=== PATIENT | male | born 2005 | race Caucasian/White ===

== ENCOUNTER 2024-04-30 02:27 | Emergency (ER) | payer OTHER, SELFPAY ==
[2024-04-30 02:29] VITALS: BP 123/78; PULSE 86; RESP 16; TEMP 36.6; O2SAT 100; BMI 21.5
--- NOTE | 2024-04-30 03:06 | PC.NURSE ---
pt from waiting room, assume care of pt at this time
[2024-04-30] MEDS: Acetaminophen 325 MG TABLET 650 MG PO (03:21)
[2024-04-30 03:25] LABS: Influenza A PCR NEGATIVE (Negative); Influenza B PCR NEGATIVE (Negative); Resp Syncy Virus RNA Qual PCR NEGATIVE (Negative); SARS COV2 PCR INHOUSE NEGATIVE (Negative)
--- NOTE | 2024-04-30 05:25 | ED_ITS ---
HPI - General Adult General Chief complaint: General Medical Stated complaint: Body Aches Time Seen by Provider: 04/30/24 05:19 Source: patient Mode of arrival: ambulatory Limitations: no limitations History of Present Illness ED Provider: Dr. Yecenia Francisco HPI narrative: Patient comes to the emergency room complaining of bilateral upper back pain. Patient states that he is very stressed, anxious and this worsens his symptoms. Patient denies any neck pain, denies neck rigidity, no URI symptoms. Related Data Previous Rx's ?Medication ?Instructions ?Recorded cyclobenzaprine 5 mg tablet 5 mg PO TID PRN muscle spasm #10 04/30/24 tabs Allergies Allergy/AdvReac Type Severity Reaction Status Date / Time No Known Allergies Allergy Verified 04/30/24 02:31 Review of Systems Review of Systems: Constitutional : No Weight loss, No Fever, No Chills, No Night Sweats, No Fatigue, No Malaise ENT/Mouth : No Hearing loss, No Ear Pain, No Nasal Congestion, No Sinus Pain, No Hoarseness, No sore throat, No Rhinorrhea, No Swallowing Difficulty Eyes: No Eye Pain, No Swelling, No Redness, No Foreign Body, No Discharge, No Vision Changes Cardiovascular : No Chest Pain, No SOB, No Dyspnea on Exertion, No Orthopnea, No Edema, No Palpitations Respiratory : No Cough, No Sputum, No Wheezing, No Smoke Exposure, No Dyspnea Gastrointestinal : No Nausea, No Vomiting, No Diarrhea, No Constipation, No abdominal Pain, No Hematochezia, No Melena Genitourinary : no irregular bleeding, No Dysuria, No Urinary Frequency, No Hematuria, No Urinary Incontinence, No Urgency, No Flank Pain, No Urinary Flow Changes, No Hesitancy Musculoskeletal : Complaining of bilateral upper back pain, feeling tense muscles Skin : No Skin Lesions, No rash Neuro : No Weakness, No Numbness, No Paresthesias, No Loss of Consciousness, No Dizziness, No Headache Psych : No Anxiety/Panic, No Depression, No SI/HI/AH/VH, No Social Issues, Heme/Lymph: No Bruising, No Bleeding,No Lymphadenopathy Endocrine : No Polyuria, No Polydipsia, No Temperature Intolerance PMFSH Social History Social History Smoked in Last 30 Days: Yes Use of substances other than those prescribed or required for medical reasons: Yes Substance Use Type: Marijuana Advance Directives: No Advance Directives Information Provided: Yes Do you have a plan to hurt others: No Plan Physical Exam ED Vital Signs: Vital Signs - 24 hr 04/30/24 02:29 Temperature 98 F Pulse Rate 86 Respiratory Rate 16 Blood Pressure 123/78 Pulse Oximetry 100 Oxygen Delivery Method Room Air BMI result Body Mass Index 21.5 Const Other: Appearance: Alert. Oriented X3. No acute distress. Eyes: Pupils equal, round and reactive to light. ENT: Pharynx normal. Neck: Normal inspection. Neck supple. No lymph nodes noted. No crepitus CVS: Normal heart rate and rhythm. Pulses normal. Normal S1 and S2 Respiratory: No respiratory distress. Breath sounds normal. No Wheezing. No rales Abdomen: Soft and nontender. No rigidity. No distention. Back: Reproducible pain to palpation in bilateral upper back, no C-spine tenderness, normal flexion-extension Skin: Skin warm and dry. Normal skin color. Normal skin turgor. Extremities: No lower extremity edema. No Lacerations. No Rash Neuro: Oriented X 3. No motor deficit. No sensory deficit. Moving all extremities. No slurred speech. CN 2 through 12 grossly intact Psych: calm, cooperative, normal affect Medications Administered Discontinued Medications Generic Name Dose Route Start Last Admin Trade Name Freq PRN Reason Stop Dose Admin Acetaminophen 650 mg 04/30/24 03:17 04/30/24 03:21 Acetaminophen 325 Mg Tablet PO 04/30/24 03:18 650 mg ONCE ONE Administration Medical Decision Making Medical Decision Making [facility] Narrative: My interpretation of labs, patient tested negative for influenza, COVID and RSV. -on physical exam, patient has palpable spasms in the upper back. Patient was given p.o. Flexeril. -patient complaining of feeling anxious, discussed with the patient that we can have the care team discussed with him possible information for outpatient treatment. Patient states that he does not like to talk to people including therapist. Patient prefers to not be seen by the care team. Agrees with the muscle relaxants, patient has Tylenol and Motrin at home. Differential Diagnosis Differential Diagnoses: The differential diagnosis associated with the presentation includes (Anxiety, depression, musculoskeletal pain.) Lab Data Labs: Lab Results 04/30/24 Range/Units 02:36 Influenza Type A (PCR) NEGATIVE (Negative) Influenza Type B (PCR) NEGATIVE (Negative) RSV RNA Qual (PCR) NEGATIVE (Negative) SARS-CoV-2 RNA (RT-PCR) NEGATIVE (Negative) Discharge Plan Discharge Clinical Impression: Musculoskeletal back pain Patient Disposition: Home, Self-Care Instructions: Back Pain (ED) Additional Instructions: Please follow-up with your primary care physician tomorrow. If you have any worsening or new symptoms, please return to the emergency room or call 911 Prescriptions: New cyclobenzaprine 5 mg tablet 5 mg PO TID PRN (Reason: muscle spasm) Qty: 10 0RF Print Language: Maori
[2024-04-30] MEDS: Cyclobenzaprine HCl 5 MG TABLET PO (05:44)
[2024-04-30 05:53] VITALS: BP 119/70; PULSE 63; RESP 16; TEMP 36.7; O2SAT 99
--- OUTSIDE RECORDS SUMMARY | 2024-05-06 12:14 | XMS_ITS | Referral Summary ---
Author Organization [facility] Address [address] [place] [phone] Care Team Providers Care Resident Services Supervisor Name Role Phone Enid Carmona MD Primary Care Physician Encounter FIN Number [id number] Date(s): 11/19/20 - 11/19/[address] [address] [facility] [phone] Discharge Disposition: 01 Home (with or w/o IV fusion or DME) Attending Physician: Elton Han MD Allergies, Adverse Reactions, Alerts No Known Allergies Medications clonazePAM 1 mg oral tablet, disintegrating Start Date: 10/01/17 Status: Ordered Diastat Pediatric 2.5 mg rectal kit 2.5 mg, Kit, Rectal, ONCE, PRN, seizures Start Date: 12/19/16 Status: Ordered Keppra 100 mg/mL oral liquid 600 mg, 6 mL, Oral, BID Start Date: 12/19/16 Status: Ordered pyridoxine 50 mg oral tablet Start Date: 10/01/17 Status: Ordered Problem List Condition Effective Dates Status Health Status Inform ant 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 Daytime enuresis(Confirmed) 06/17/16 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 Diagnosis Diagnosis Type Effective Dates Health Status Cl inical Service Informant Kabuki syndrome Working Diagnosis 11/19/20 Non-Specified Procedures Procedure Date Related Diagnosis Body Site Status tympanostomy tube placement 06/15/06 Completed History of open heart surgery 2004 Completed Rectal and anal operations 2, 3 05/2004 Completed Closure of colostomy 4 02/2004 Co mpleted 1VSD repair 02/2005 2as infant- mother unsure of date/age 36 repair imperforate anus/anorectoplasty s/p colostomy and then pull through repair 4colostomy after closed around 3 months of age per mother Vital Signs Most recent to oldest [Reference Range]: 1 Height 149 cm (11/19/20 1:13 PM) Height NOT Growth Chart 149 cm (11/19/20 1:13 PM) Converted Height NOT Growth Chart 4.9 ft (11/19/20 1:13 PM) Weight 64.4 kg (11/19/20 1:13 PM) Weight NOT Growth Chart 64.4 kg (11/19/20 1:13 PM) Converted Weight NOT Growth Chart 141.98 lb(s) (11/19/20 1:13 PM) Body Mass Index 29.01 kg/m2 (11/19/20 1:13 PM) Body Mass Index NOT Growth Chart 29 (11/19/20 1:13 PM) Body surface area 1.6326 m2 (11/19/20 1:13 PM) Social History Social History Type Response Sex Male
--- OUTSIDE RECORDS SUMMARY | 2024-05-06 12:14 | XMS_ITS | Continuity of Care Document ---
Author Name [employer] Organization Interface Problems Problem Status Onset Date Classification Date Reported Comments Source Kabuki syndrome Active 12/02/2021 03/05/2022 [facility] Congenital vertebral anomaly(<span ID= [id number] >Confirmed</sp an>) Active 06/17/2016 03/05/2022 Acetabular dysplasia(<span ID= [id number] >Confirmed</sp an>) Active 06/17/2016 03/05/2022 Daytime enuresis(<span ID= [id number] >Confirmed</sp an>) Active 06/17/2016 03/05/2022 Kabuki syndrome(<span ID= [id number] >Confirmed</sp an>) Active 06/17/2016 03/05/2022 Medications Medication Details Route Status Patient Instructions Ordering Provider Order Date Source pyridoxine 50 mg oral tablet <span ID= MEDPROD [id number] style= Bold >pyridoxin e 50 mg oral tablet</spa n>
Star t Date: 10/01/17<br/ >Status: Ordered Active 018 Clonazepam 1 MG Disintegrating Tablet <span ID= MEDPROD [id number] style= Bold >clonazePA M 1 mg oral tablet, disintegrat ing</span>< br/>Start Date: 10/01/17<br/ >Status: Ordered Active 018 0.5 ML Diazepam 0.005 MG/MG Prefilled Applicator [Diastat]
2.5 mg, Kit, Rectal, ONCE, PRN, seizures Active 017 Levetiracetam 100 MG/ML Oral Solution [Keppra]
600 mg, 6 mL, Oral, BID Active 017 Allergies, Adverse Reactions, Alerts Substance Category Reaction Severity Reaction type Status Date Reported Comments Source Immunizations Immunization Date Given Site Status Last Updated Comments So urce Results Order Name Results Value Reference Range Date Interpretatio n Comments Source Vital Signs Vital Sign Value Date Comments Source Height NOT Growth Chart 150.5 cm 03/03/2022 [facility] Converted Height NOT Growth Chart 4.9 [ft_i] 03/03/2022 [facility] ital Weight NOT Growth Chart 63.6 kg 03/03/2022 [facility] Body surface area 1.6306 m2 03/03/2022 [facility] Converted Weight NOT Growth Chart 140.21 [lb_ap] 03/03/2022 [facility] ital Body Mass Index NOT Growth Chart 28 03/03/2022 [facility] ital Height in cms. 150.5 cm 03/03/2022 [facility] Weight in kgs 63.6 kg 03/03/2022 Body Mass Index 28.08 kg/m2 03/03/2022 [facility] Height NOT Growth Chart 149 cm 11/19/2020 [facility] Converted Height NOT Growth Chart 4.9 [ft_i] 11/19/2020 [facility] ital Weight NOT Growth Chart 64.4 kg 11/19/2020 [facility] Body surface area 1.6326 m2 11/19/2020 [facility] Converted Weight NOT Growth Chart 141.98 [lb_ap] 11/19/2020 [facility] ital Body Mass Index NOT Growth Chart 29 11/19/2020 [facility] ital Height in cms. 149 cm 11/19/2020 [facility] Weight in kgs 64.4 kg 11/19/2020 Body Mass Index 29.01 kg/m2 11/19/2020 [facility] Encounters Location Location Details Encounter Type Encounter Number Reason For Visit Attending Provider ADM Date DC Date Status Source Outpatient [id number] Elton Han MD 11/19 [facility] Recurring [id number] Elton Han MD 11/19 [facility] Pre-Recurri ng [id number] Elton Han MD 12/03 [facility] Outpatient [id number] Elton Han MD 03/03 [facility] Procedures Procedure Code Date Perfomer Comments Source tympanostomy tube placement 06/15/2006 History of open heart surgery<sup>1</sup> [id number] 06/15/2004 VSD repair 02/2005 [facility] Rectal and anal operations<sup>2, 3</sup> [id number] 05/15/2004 as - mothe r unsure of date/age611/2003 repair imperforate anus/anorectoplast y s/p colostomy and then pull through repair Closure of colostomy<sup>4</arellano p> [id number] 02/14/2004 colostomy after closed around 3 months of age per mother
--- OUTSIDE RECORDS SUMMARY | 2024-05-06 12:14 | XMS_ITS | Referral Summary ---
Author Organization [facility] Address [address] [place] [phone] Care Team Providers Care Drier And Evaporator Operator Name Role Phone Enid Carmona MD Primary Care Physician [phone] Encounter FIN Number [id number] Date(s): 11/19/20 - 11/19/[address] [address] [place] [phone] Discharge Disposition: 01 Home (with or w/o [...]
--- OUTSIDE RECORDS SUMMARY | 2024-05-06 12:14 | XMS_ITS | Referral Summary ---
Author Organization [facility] Address [address] [place] [phone] Care Team Providers Care Rn Primary Care Name Role Phone Enid Carmona MD Primary Care Physician Encounter FIN Number [id number] Date(s): 11/19/20 - 11/19/[address] [address] [facility] [phone] Discharge Disposition: 01 Home (with or w/o [...]
--- OUTSIDE RECORDS SUMMARY | 2024-05-06 12:14 | XMS_ITS | Referral Summary ---
Author Organization [facility] Address [address] [place] [phone] Care Team Providers Care Fire Equipment Inspector Name Role Phone Enid Carmona MD Primary Care Physician Encounter FIN Number [id number] Date(s): 11/19/20 - 11/19/[address] [address] [facility] [phone] Discharge Disposition: 01 Home (with or w/o [...]
--- OUTSIDE RECORDS SUMMARY | 2024-05-06 12:15 | XMS_ITS | Referral Summary ---
Author Organization [facility] Address [address] [place] [phone] Care Team Providers Care Terminal Clerk Name Role Phone Mathew LOWE, [place] Primary Care Physician Encounter FIN Number [id number] Date(s): 03/03/22 - 03/03/[address] [address] [facility] [phone] Discharge Disposition: 01 Home (with or w/o IV fusion or DME) Attending Physician: Elton Han MD Allergies, Adverse Reactions, Alerts No Known Allergies Medications Keppra 100 mg/mL oral liquid 600 mg, 6 mL, Oral, BID Start Date: 12/19/16 Status: Ordered Problem List Condition Effective Dates Status Health Status Inform ant 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 Daytime enuresis(Confirmed) 06/17/16 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 Diagnosis Diagnosis Type Effective Dates Health Status Cl inical Service Informant Kabuki syndrome Working Diagnosis 12/02/21 Non-Specified Procedures Procedure Date Related Diagnosis Body Site Status tympanostomy tube placement 06/15/06 Completed History of open heart surgery 2004 Completed Rectal and anal operations 2, 3 05/2004 Completed Closure of colostomy 4 02/2004 Co mpleted 1VSD repair 02/2005 2as - mother unsure of date/age 36 repair imperforate anus/anorectoplasty s/p colostomy and then pull through repair 4colostomy after closed around 3 months of age per mother Vital Signs Most recent to oldest [Reference Range]: 1 Height 150.5 cm (03/03/22 1:55 PM) Height NOT Growth Chart 150.5 cm (03/03/22 1:55 PM) Converted Height NOT Growth Chart 4.9 ft (03/03/22 1:55 PM) Weight 63.6 kg (03/03/22 1:55 PM) Weight NOT Growth Chart 63.6 kg (03/03/22 1:55 PM) Converted Weight NOT Growth Chart 140.21 lb(s) (03/03/22 1:55 PM) Body Mass Index 28.08 kg/m2 (03/03/22 1:55 PM) Body Mass Index NOT Growth Chart 28 (03/03/22 1:55 PM) Body surface area 1.6306 m2 (03/03/22 1:55 PM) Social History Social History Type Response Sex Male
--- OUTSIDE RECORDS SUMMARY | 2024-05-06 12:15 | XMS_ITS | Referral Summary ---
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
--- OUTSIDE RECORDS SUMMARY | 2024-05-06 12:15 | XMS_ITS | Referral Summary ---
Author Organization [facility] Address [address] [place] [phone] Care Team Providers Care Assembler Installer Structures Name Role Phone Enid Carmona MD Primary Care Physician Encounter FIN Number [id number] Date(s): 12/03/21 - 01/10/[address] [address] [facility] [phone] Discharge Disposition: 01 Home (with or w/o [...]
--- OUTSIDE RECORDS SUMMARY | 2024-05-06 12:15 | XMS_ITS | Referral Summary ---
Author Organization [facility] Address [address] [place] [phone] Care Team Providers Care Manufacturing Technology Professor Name Role Phone Enid Carmona MD Primary Care Physician Encounter FIN Number [id number] Date(s): 11/19/20 - 06/20/[address] [address] [facility] [phone] Discharge Disposition: 01 Home (with or w/o [...] oral tablet Start Date: 10/01/17 Status: Ordered Mental Status 11/19/20 Affect/Behavior Calm, Appropriate, Flat, Interactive Problem List Condition Effective Dates Status Health [...]
--- OUTSIDE RECORDS SUMMARY | 2024-05-06 12:15 | XMS_ITS | Referral Summary ---
Author Organization [facility] Address [address] [place] [phone] Care Team Providers Care Anchorman Name Role Phone Mathew LOWE, [place] Primary Care Physician Encounter FIN Number [id number] Date(s): 03/03/22 - 03/03/[address] [address] [facility] [phone] Discharge Disposition: 01 Home (with or w/o [...]
== END 2024-04-30 05:54 | disposition home or self-care (01) ==
PROVIDERS: Emergency Provider Emergency Medicine
DX: M79.18 Myalgia, other site (principal); M54.6 Pain in thoracic spine; Z03.818 Encounter for observation for suspected exposure to other biological agents ruled out
CPT/HCPCS: 0241U; 99283; 99284

== ENCOUNTER 2025-03-21 19:47 | Emergency (ER) | payer OTHER, SELFPAY ==
--- NOTE | ~2025-03-21 | XR_ITS ---
CLINICAL HISTORY: pain swelling 3 view right ankle Comparison: None provided Findings: Bones intact. No dislocations. No significant arthritic change or erosions. No ankle effusion. No radiopaque foreign body. IMPRESSION: 1. No acute findings. This document has been electronically signed by: Matthew Chase MD on 03/21/2025 21:05:52
--- NOTE | ~2025-03-21 | XR_ITS ---
CLINICAL HISTORY: pain swelling 3 view right foot Comparison: None provided Findings: Bones intact. No dislocations. No significant loss of joint space, osteophytes, or erosions. No ankle effusion. No radiopaque foreign body. IMPRESSION: 1. No acute findings. This document has been electronically signed by: Matthew Chase MD on 03/21/2025 21:05:56
[2025-03-21 20:13] VITALS: BP 101/60; PULSE 68; RESP 16; TEMP 36.9; O2SAT 100; BMI 21.5
--- NOTE | 2025-03-21 23:58 | ED_ITS ---
HPI - General Adult General Chief complaint: Extremity Injury, Lower Stated complaint: rt ankle injury playing basketball Time Seen by Provider: 03/21/25 22:53 Source: patient Limitations: no limitations History of Present Illness ED Provider: Tawana Jennings PA-C HPI narrative: 19-year-old male presents with right ankle pain. Patient states he was playing basketball, he subsequently jumped up, landed, rolling the ankle. Now with throbbing pain and subtle swelling. Patient is ambulatory. Related Data Previous Rx's ?Medication ?Instructions ?Recorded cyclobenzaprine 5 mg tablet 5 mg PO TID PRN muscle spa sm #10 04/30/24 tabs Allergies Allergy/AdvReac Type Severity Reaction Status Date / Time No Known Allergies Allergy Verified 03/21/25 20:16 Review of Systems Review of Systems: Yes all other systems are reviewed and are negative Constitutional: Constitutional: Denies fatigue and Denies fever(s) Musculoskeletal: Musculoskeletal: Reports arthralgias and Reports joint swelling Endocrine: Endocrine: Denies fatigue PMFSH Past Medical History Attestation statement: The following information was validated with the patient. Social History Social History Substance Use Type: Marijuana Advance Directives: No Do you have a plan to hurt others: No Plan Physical Exam ED Vital Signs: Vital Signs - 24 hr 03/21/25 20:13 Temperature 98.4 F Pulse Rate 68 Respiratory Rate 16 Blood Pressure 101/60 Pulse Oximetry 100 Oxygen Delivery Method Room Air BMI result Body Mass Index 21.5 Const Other: Alert well-appearing Orientation/consciousness: patient oriented x3 Resp Effort & Inspection: normal respiratory effort Cardio Other: Normal peripheral perfusion Skin Other: Warm dry no rash Neuro General: patient oriented x3, gait normal, no focal motor deficits and CN's II- XI intact bilaterally Extrem Other: No deformity, subtle generalized swelling no ecchymosis, able to flex and extend the right ankle Psych Other: Cooperative Medical Decision Making Medical Decision Making [facility] Narrative: 19-year-old male presents with right ankle pain. Patient states he was playing basketball, he subsequently jumped up, landed, rolling the ankle. Now with throbbing pain and subtle swelling. Patient is ambulatory. No chronic issues History: Per patient I have considered the following differential diagnoses: Fracture, dislocation, sprain Plan: X-rays of the ankle and foot ordered from triage there was no fracture or dislocation the patient has a strain/sprain. Sending with home care instructions I have independently reviewed the following tests: X-ray right ankle:Findings: Bones intact. No dislocations. No significant arthritic change or erosions. No ankle effusion. No radiopaque foreign body. IMPRESSION: 1. No acute findings. X-ray right foot:Findings: Bones intact. No dislocations. No significant loss of joint space, osteophytes, or erosions. No ankle effusion. No radiopaque foreign body. IMPRESSION: 1. No acute findings. Differential Diagnosis Differential Diagnoses: The differential diagnosis associated with the presentation includes See medical decision-making Admission/Observation Consideration of admission/observation: Escalation of care including admission/observation considered Not applicable Radiology Impression Discussion of test interpretation with radiology: I have reviewed the radiolo gist's reading. Discharge Plan Discharge Clinical Impression: Ankle sprain and strain Patient Disposition: Home, Self-Care Instructions: P.R.I.C.E. Treatment (ED), Sprain (ED) Additional Instructions: The x-ray of the ankle and foot were negative for fracture or dislocation. You have a sprain. See home care instructions. Purchase and athletic sleeve for the ankle, this will help to stabilize the joint, it will also help with your discomfort. Use the crutches, bear weight as tolerated. Use [id number] ibuprofen 600 mg taken every 6 hours with food for your pain. Follow up with your primary care provider as needed. Prescriptions: No Action cyclobenzaprine 5 mg tablet 5 mg PO TID PRN (Reason: muscle spasm) Qty: 10 0RF Print Language: Greek
[2025-03-22 00:20] VITALS: BP 101/60; PULSE 68; RESP 16; TEMP 36.9; O2SAT 100
== END 2025-03-22 00:21 | disposition home or self-care (01) ==
PROVIDERS: Emergency Provider Emergency Medicine
DX: S93.401A Sprain of unspecified ligament of right ankle, initial encounter (principal); M25.571 Pain in right ankle and joints of right foot; X58.XXXA Exposure to other specified factors, initial encounter; Y93.9 Activity, unspecified; Y92.9 Unspecified place or not applicable; Y99.9 Unspecified external cause status
CPT/HCPCS: 73610; 73630; 99283

== ENCOUNTER → 2025-03-21 20:37 | Outpatient (BNV) | payer OTHER, SELFPAY | PROVIDERS: Visit Provider Radiology Diagnostic Radiology | DX: M25.571 Pain in right ankle and joints of right foot (principal); M79.671 Pain in right foot; R22.41 Localized swelling, mass and lump, right lower limb | CPT/HCPCS: 73610; 73630 ==